=== PATIENT | female | born 1975 | race Caucasian/White ===

== ENCOUNTER 2020-12-02 13:50 | Emergency (ER) | payer MEDICAID, SELFPAY ==
[2020-12-02 10:36] VITALS: BMI 26.9
[2020-12-02 13:51] VITALS: BP 114/104; PULSE 90; RESP 17; TEMP 36.8; O2SAT 96; BMI 25.2
--- NOTE | 2020-12-02 15:35 | EX.ED.VISEXT ---
HPI History of Present Illness Chief Complaint: Bite Informant: patient Narrative Narrative: 45-year-old female states that late Wednesday night an insect stung her dog and then her. She was stung on the thenar eminence of the right hand. She states Wednesday it was a little swollen but painful and today was more red and swollen. She went to an urgent care where she was prescribed an unknown antibiotic. She has already been on an antibiotic she believes possibly doxycycline for acne. Patient denies any fevers. This afternoon she noted that it seemed more swollen and the redness was up onto her wrist. ROS ROS ED Constitutional Constitutional ED: Denies chills or weight loss Eyes Eyes: Denies change in vision or diplopia ENT ENT ED: Denies ear pain, rhinorrhea or sore throat Cardiovascular Cardiovascular: Denies chest pain, orthopnea, palpitations or racing heartbeat Respiratory/Chest Respiratory/Chest: Denies cough, dyspnea or orthopnea Gastrointestinal Gastrointestinal: Denies abdominal pain, diarrhea, nausea or vomiting Genitourinary Genitourinary ED: Denies dysuria, hematuria or urinary frequency Musculoskeletal Musculoskeletal: Denies arthralgias or myalgias Integumentary Reports rash; Denies abscess Neurologic Neurologic: Denies headache(s) or weakness Psychiatric Psychiatric: Denies anxiety, depression, suicidal ideation or suicidal thoughts Endocrine Endocrinology: Denies polydipsia, polyphagia or polyuria Allergic/Immunologic Allergic/Immunologic ED: Denies mouth swelling, tongue swelling or urticaria PFSH PFS Medical History Menorrhagia with irregular cycle Multiple thyroid nodules Submucous uterine fibroid Home Medications doxycycline hyclate 100 mg capsule 100 mg PO Q12H #14 cap 12/02/20 [Rx Last Taken Unknown] prednisone 60 mg PO DAILY #15 tablet 12/02/20 [Rx Last Taken Unknown] spironolactone 100 mg tablet 100 mg PO DAILY 12/02/20 [History Last Taken Unknown] Allergy/AdvReac Type Severity Reaction Status Date / Time sulfamethoxazole Allergy Hives Verified 12/02/20 13:53 [From Bactrim] trimethoprim [From Bactrim] Allergy Hives Verified 12/02/20 13:53 morphine AdvReac Upset Verified 12/02/20 13:53 Stomach Family History Other Menorrhagia with irregular cycle Submucous uterine fibroid Surgical History H/O total hysterectomy Hx of cholecystectomy Social History (Updated 12/02/20 @ 15:[address] Gordon Strickland DO) Smoking Status: Current some day smoker tobacco type: cigarettes substance use type: does not use EXAM Physical Exam Const Vital Signs: 12/02/20 13:51 Temperature 98.2 F Temperature Source Temporal Pulse Rate 90 Respiratory Rate 17 Blood Pressure 114/104 H Blood Pressure Mean 107 Pulse Ox 96 Oxygen Delivery Method Room Air Positive well nourished and well developed General Appearance ED: well developed HEENT Reports normocephalic, head/scalp atraumatic and moist mucous membranes Eyes PERRL and EOMs intact bilaterally Neck no lymphadenopathy, supple and no JVD Resp normal respiratory effort and clear to auscultation bilaterally Cardio regular rate, regular rhythm and no murmurs GI normal to inspection, nondistended, normoactive bowel sounds and non-tender Palpation: soft Back/Spine no CVA tenderness and normal ROM Extremity Extremity Narrative: Patient has tenderness palpation over the right thenar eminence. There is some erythema and swelling. There is not particularly increased warmth. There is some slight erythema up onto the wrist. No lymphangitic streaking. I do not see any evidence of a stinger in the wound General Extremety ED: Yes tenderness; Negative for edema General Extremity: Negative for edema Neuro oriented x3 and CN's II-XII intact bilaterally Sensorium / Orientation: alert Motor Exam: strength 5/5 throughout Psych mental status grossly normal Mood & Affect: Negative for depressed or tearful Skin no rashes or lesions noted and no wounds Rashes: No no rashes MDM MDM MDM Narrative Medical decision making narrative: I believe that this is most likely a local reaction to envenomation. Would recommend Benadryl and steroids. As she is already been prescribed an antibiotic she may certainly take that. Monitor for worsening symptoms return if any concerns Discharge Plan Triage Chief Complaint: Bite ED Provider: Gordon Strickland Dx/Rx/DC Orders Clinical Impression: Local reaction to bee sting Instructions: ED Insect Sting, Local Reaction Prescriptions: New prednisone 20 MG tablet 60 mg PO DAILY Qty: 15 RF: 0 No Action spironolactone 100 mg tablet 100 mg PO DAILY RF: 0 doxycycline hyclate 100 mg capsule 100 mg PO Q12H Qty: 14 RF: 0 Primary Care Provider: Lilliam Rao NP Referrals: Lilliam Rao NP, [facility] [Primary Care Provider] - As Needed Disposition Disposition: Home, Self Care
== END 2020-12-02 15:52 | disposition home or self-care (01) ==
LOC: ED 15:51
PROVIDERS: Emergency Provider Emergency Medicine; PCP Nurse Practitioner Family
DX: T63.441A Toxic effect of venom of bees, accidental (unintentional), initial encounter (principal); Y92.9 Unspecified place or not applicable; F17.210 Nicotine dependence, cigarettes, uncomplicated
CPT/HCPCS: 99282